=== PATIENT | female | born 1980 | race Caucasian/White ===

== ENCOUNTER 2017-08-28 05:09 | Day surgery (SDC) | payer BC ==
[2017-08-25 10:00] LABS: HEMATOCRIT 38.6 % (36.0-48.0); LYMPHOCYTES 37.1 % (15-50); MCH 31.4 pg (26.0-34.0); MCHC 33.7 g/dL (31.0-37.0); MCV 93.2 fL (80.0-100.0); MEAN PLATELET VOLUME 10.2 fL (7.4-10.4); NEUTROPHILS 57.4 % (40-80); PLATELET COUNT 208 10x3/uL (130-400); RBC 4.14 10x6/uL (4.00-5.40); RDW 13.5 % (11.5-14.5); WBC 6.5 10x3/uL (4.8-10.8)
[2017-08-25 10:17] LABS: CALC OSMOLALITY 277 mosm/kg (275-300); CALCIUM 9.2 mg/dL (8.5-10.1); CARBON DIOXIDE 28.5 mmol/L (21.0-32.0); CHLORIDE - SERUM 103 mmol/L (98-107); CREATININE - SERUM 0.7 mg/dL (0.6-1.3); GLUCOSE 90 mg/dL (74-106); POTASSIUM - SERUM 4.4 mmol/L (3.5-5.1); SODIUM 139 mmol/L (136-145); UREA NITROGEN 12 mg/dL (7-18); eGFR NON AFRICAN AMERICAN > 90 mL/min (90-120)
[~2017-08-28] VITALS: Ht 160 cm; Wt 96.4 kg
[2017-08-28] VITALS (11 sets, daily range): BP systolic 97–126; BP diastolic 60–73; Ht 160 cm; Wt 96.4 kg
[~2017-08-28 05:09] MED LIST: METFORMIN HCL500 M1 PO
[2017-08-28] MEDS ORDERED: ADDERALL 20 MG20 M1 PO (05:48)
[2017-08-28 06:21] LABS: HCG URINE NEGATIVE (NEGATIVE)
--- NOTE | 2017-08-28 12:00 | NUR ---
RECEIVED PT FROM VIA BED TO ROOM 1217. BED LOCKED AND PLACED IN LOW POSITION. VSS. PT AAO X 4. HRRR WITHOUT AUDIBLE MURMUR. BBS CLEAR. BS ABSENT IN UPPER QUADS, HYPOACTIVE IN LOWER QUADS. 3 LAP INCISIONS WITH DERMABOND WITHOUT REDNESS, SWELLING OR DRAINAGE NOTED. NEG HOMANS' SIGN. PPP. NO EDEMA NOTED TO BLE. SCDS ON BLE. PUMP ON. BANKS TO GRAVITY DRAINING CLOUDY, YELLOW URINE. PIV OF NS INFUSING AT 150 ML/HR TO RIGHT AC. SITE CLEAR. PT STATES PAIN OF "9" ON 0-10 PAIN SCALE. AT BEDSIDE. SR UP X 2. CALL LIGHT IN REACH.
--- NOTE | 2017-08-28 12:05 | NUR ---
TORADOL 30 MG GIVEN SIVP OVER 2 MINUTES. PT INSTRUCTED ON MED. VERBALIZES UNDERSTANDING.
--- NOTE | 2017-08-28 12:10 | NUR ---
ICE CHIPS PROVIDED TO PT.
--- NOTE | 2017-08-28 12:24 | NUR ---
ICE PACK TO INCISION.
--- NOTE | 2017-08-28 12:44 | NUR ---
PT CONTINUES TO C/O PAIN OF "10" ON 0-10 PAIN SCALE. DILAUDID 2 MG GIVEN SIVP OVER 2 MINUTES. PT INSTRUCTED ON MED. VERBALIZES UNDERSTANDING.
--- NOTE | 2017-08-28 13:15 | NUR ---
PT LYING SUPINE IN BED. EYES CLOSED. RESP NON-LABORED. WAKES BRIEFLY, STATES PAIN MUCH BETTER. NO C/O VOICED.
--- NOTE | 2017-08-28 14:07 | NUR ---
PT WAKES UPON ENTERING ROOM. STATES PAIN MUCH BETTER. UMB INCISION WITHOUT DRAINAGE OR SWELLING NOTED. SLIGHT REDNESS NOTED TO INCISION. ICE PACK CONTINUES TO INCISION. PT PROVIDED [place] IN [place].
--- NOTE | 2017-08-28 15:13 | NUR ---
DR PATTERSON NOTIFIED OF PT C/O NAUSEA AND DESIRE TO STAY OVERNIGHT RATHER THAN DC THIS EVENING. NEW ORDER RECEIVED.
--- NOTE | 2017-08-28 15:54 | NUR ---
REGLAN 10 MG GIVEN SIVP OVER 2 MINUTES. PT STATES NAUSEA HAS SUBSIDED SOME. PT INSTRUCTED ON MED. VERBALIZES UNDERSTANDING.
--- NOTE | 2017-08-28 16:48 | NUR ---
PT C/O INCISIONAL PAIN OF "7" ON 0-10 PAIN SCALE. DILAUDID 2 MG GIVEN SIVP OVER 2 MINUTES. PT INSTRUCTED ON MED. VERBALIZES UNDERSTANDING.
--- NOTE | 2017-08-28 17:36 | NUR ---
THIS RN TO BEDSIDE FOR ADMIT AND HISTORY ASSESSMENT. PT CURRENTLY IN HIGH FOWLERS WITH SPOUSE AT BEDSIDE ASSISTING PT WITH EATING A REG DIET. PT IS DROWZY W/PERIODS OF ALERTNESS WHEN ADDRESSED OR WITH VERBAL STIMULUS. ASSESSMENT COMPLETED WITH SOME ASSISTANCE FROM SPOUSE. PT CURRENTLY RATES PAIN 5/10 DESCRIBING IT SORENESS. PATIENT NEEDS ASSESSED. PT REQUESTING MORE TEA TO DRINK. LARGE CUP OF TEA FROM [employer] PROVIDED ALONG WITH A LARGE CUP OF ICE WATER. SPOUSE AND FAMILY X 1 REMAIN AT BEDSIDE. BED LOW, SIDE RAILS UP X 2. CALL LIGHT AT PT'S SIDE.
[2017-08-28] MEDS ORDERED: IBUPROFEN800 MG PO (17:50)
--- NOTE | 2017-08-28 18:15 | NUR ---
PIV CONVERTED TO SALINE LOCK. FLUSHES EASILY WITH 10 ML NS. SITE RETAPED AND SECURED. BANKS DC'D WITH 200 ML OF DARK, TOMASA COLORED URINE NOTED IN BAG. PT OOB AND AMB TO BR TO VOID. PT UNABLE TO VOID AT THIS TIME. PERICARE DONE PER PT. PANTIES AND PAD ON. PT AMBULATES BACK TO BED. TAVO ACTIVITY WELL.
--- NOTE | 2017-08-28 18:34 | NUR ---
PT TAX LAWYER LIGHT. SL SITE LEAKING. ATTEMPT TO RETAPE AND SECURE AND IV CATHELON DC'D. PRESSURE BANDAGE TO SITE. PT TAVO WELL.
--- NOTE | 2017-08-28 18:38 | NUR ---
DR MAE NOTIFIED OF PIV DISCONTINUED AND ORDERS FOR TORADOL. NEW ORDER RECEIVED.
--- NOTE | 2017-08-28 18:48 | NUR ---
TORADOL 30 MG GIVEN IM TO RIGHT HIP. PT INSTRUCTED ON MED. VERBALIZES UNDERSTANDING.
--- NOTE | 2017-08-28 19:20 | NUR ---
ASSESSMENT PER FLOW SHEET, 2 LAP AND 1 UMB INC WITH DERMABOND CDI WITH NO DRAINAGE NOTED, FRESH ICE PACK TO ABD, NO VAG BLEEDING NOTED, PT DENIES FLATUS OR NAUSEA AT THIS TIME, PT INST ON DUE TO VOID, PT VERBALIZES UNDERSTANDING, PT INST ON AND DEMONSTRATED INCENTIVE SPIROMETER WITH GOOD EFFORT, PT RATES INC PAIN 5/10 AT THIS TIME, PT DENIES NEEDS AT THIS TIME, FAMILY AT BEDSIDE
--- NOTE | 2017-08-28 19:45 | NUR ---
PT OFF UNIT VIA WC WITH FAMILY AT THIS TIME
--- NOTE | 2017-08-28 20:20 | NUR ---
PT BACK IN ROOM, VS OBTAINED, PT C/O SLIGHT NAUSEA AT THIS TIME, FRESH ICE CHIPS SERVED, DENIES FURTHER NEEDS
--- NOTE | 2017-08-28 20:48 | NUR ---
PT C/O INC PAIN, DENIES NAUSEA, GAVE PT OPTION OF RESTARTING IV OR TAKING PAIN MED PO, PT REQUESTED PO, ADM PERCOCET PER MD ORDERS, SEE EMAR, PT INST TO EAT A SNACK WITH PAIN MED, PT REPORTS EATING CHEEZ ITS, PT REQUESTED AND SERVED TEA, PT DENIES FURTHER NEEDS AT THIS TIME, FAMILY AT BEDSIDE
--- NOTE | 2017-08-28 21:25 | NUR ---
PT RESTING WITH EYES CLOSED, RESP QUIET, NO DISTRESS NOTED, LEFT UNDISTURBED AT THIS TIME, BEDDING PROVIDED TO SPOUSE
--- NOTE | 2017-08-28 22:33 | NUR ---
PT RESTING WITH EYES CLOSED, RESP QUIET, NO DISTRESS NOTED, LEFT UNDISTURBED AT THIS TIME, SPOUSE ASLEEP IN RECLINER
--- NOTE | 2017-08-28 23:05 | NUR ---
SPOUSE AT UNDER WATER ASSISTANT, INQUIRES ABOUT PAIN MED FOR PT, THIS RN TO ROOM, PT INFORMED WHEN PAIN MED IS DUE, PT VERBALIZES UNDERSTANDING, INFORMED PT THAT I WILL BE IN AROUND 12:30 AM TO ADM WHEN DUE AND OBTAIN VS AT THAT TIME, PT VERBALIZES UNDERSTANDING, PT REPORTS VOIDING, EMPTIED 600 MLS OF CLEAR YELLOW URINE FROM [place], SCD'S PLACED ON AND WORKING PROPERLY, PT DENIES FURTHER NEEDS AT THIS TIME, SPOUSE AT BEDSIDE
[2017-08-29 00:39] VITALS: BP 110/64
--- NOTE | 2017-08-29 00:39 | NUR ---
PT RESTING WITH EYES CLOSED, AROUSES TO SOFT VERBAL STIMULATION, VS OBTAINED, PT DEMONSTRATED INCENTIVE SPIROMETER WITH GOOD EFFORT, ADM PAIN MED PER MD ORDERS, SEE EMAR, PT REQUESTS TO AMB FOR A FEW MINUTES, SCD'S REMOVED, PT UP, GAIT STEADY, THIS RN WALKS WITH PT AROUND UNIT, PT BACK TO ROOM, VOIDED WITH NO DIFFICULTY, WENT TO EMPTY [place], PT REPORTS REMOVING IT FROM [employer], STATES "I DIDN'T REALIZE YOU NEEDED ME TO PEE IN IT AGAIN", PT REPORTS VOIDING LARGE AMOUNT "LIKE LAST TIME", PT TO SINK, WASHES HANDS, BACK TO BED, SCD'S PLACED BACK ON AND WORKING PROPERLY, FRESH ICE PACK TO ABD, PT DENIES FURTHER NEEDS, SPOUSE ASLEEP IN RECLINER
--- NOTE | 2017-08-29 02:03 | NUR ---
PT RESTING WITH EYES CLOSED, RESP QUIET, NO DISTRESS NOTED, LEFT UNDISTURBED AT THIS TIME, SCD'S CONTINUE ON AND WORKING PROPERLY, SPOUSE ASLEEP IN RECLINER
[2017-08-29 04:24] VITALS: BP 125/67
--- NOTE | 2017-08-29 04:24 | NUR ---
SPOUSE AT HOG HANDLER, REQUESTS H20 FOR PT, THIS RN TO ROOM, PT SITTING ON SIDE OF BED, VS OBTAINED, ADM PERCOCET PO PER MD ORDERS, SEE EMAR, WITH FRESH H20, PT DEMONSTRATED I.S. WITH GOOD EFFORT, PT DENIES FURTHER NEEDS, PT REQUESTS SCD'S OFF AT THIS TIME
--- NOTE | 2017-08-29 04:40 | NUR ---
PT OFF UNIT VIA WC WITH SPOUSE
--- NOTE | 2017-08-29 05:05 | NUR ---
PT BACK IN ROOM, SITTING UP IN WC, REPORTS THAT SITTING UP MAKES HER FEEL BETTER, PT DENIES NEEDS AT THIS TIME, SPOUSE AT SIDE
--- NOTE | 2017-08-29 06:16 | NUR ---
PT RESTING WITH EYES CLOSED, RESP QUIET, NO DISTRESS NOTED, LEFT UNDISTURBED AT THIS TIME, SPOUSE ASLEEP IN RECLINER
--- NOTE | 2017-08-29 07:00 | NUR ---
SHIFT REPORT TO JUMANA MCCLELLAND RN
[2017-08-29 07:20] VITALS: BP 124/73
--- NOTE | 2017-08-29 07:30 | NUR ---
PT IS RECEIVED THIS AM SITTING UP IN BED. SHE STATES THAT HER PAIN IS A 6. SHE LAST HAD HER PAIN MED AT 0430. GEN- AWAKE AND ALERT. LUNGS- CLEAR. HEART- RRR. ABD- SOFT WITH TENDERNESS. BS+. TWO LOWER LAP INCISIONS WITH DERMABOND THAT ARE CLEAN AND DRY. UMBILICAL INCISION ALSO CLEAN AND DRY WITH DERMABOND. SMALL VAGINAL BLEEDING. SCD'S ARE OFF AT THIS TIME SINCE PT HAS BEEN AMBULATORY IN HALLWAYS AND ROOM. BED IS LOW. SIDE RAILS UP X 2 AND CALL LIGHT IN REACH. AT BEDSIDE.
--- NOTE | 2017-08-29 08:00 | NUR ---
DR PATTERSON IS HERE TO SEE PT. NEW ORDERS TO BE REVIEWED.
--- NOTE | 2017-08-29 08:49 | NUR ---
PT JUST RETURNED FROM AMBULATING IN HALLWAY WITH HER . SHE WALKED TO THE [place]FET[place]IA AND BACK. SHE REQUESTED PAIN MED. PAIN MED GIVEN. J PT IS BEING DISCHARGED. SHE WOULD LIKE TO BE DISCHARGED ABOUT 1300.
[2017-08-29] MEDS ORDERED: PERCOCET 7.5/321 TAB (10:30)
[2017-08-29] MEDS ORDERED: IBUPROFEN600 MG PO (10:30)
--- NOTE | 2017-08-29 11:00 | NUR ---
PT WAS UP AND TAKING SHOWER. GETTING DRESSED TO BE DISCHARGED. HAS ALREADY BEEN AND PICKED UP HER PRESCRIPTIONS FOR HOME. THEY LIVE IN [place] AND WANTED HER TO HAVE PAIN MED AGAIN BEFORE SHE GETS IN HER CAR TO GO.
--- NOTE | 2017-08-30 22:28 | DS ---
PATIENT:CAROLINE SR :84 MEDICAL RECORD: [id number] DISCHARGE SUMMARY ADMISSION DATE: 08/28/17 DISCHARGE DATE: 08/29/17 DATE OF ADMISSION: 08/28/2017. DATE OF DISCHARGE: 08/29/2017. ADMISSION DIAGNOSIS: Cervical dysplasia. DISCHARGE DIAGNOSIS: Cervical dysplasia. PROCEDURE: 1. Laparoscopically-assisted vaginal hysterectomy with bilateral salpingectomy. 2. Cystoscopy. ATTENDING: Dr. Patterson. HISTORY OF PRESENT ILLNESS: See the H&P in the chart. SUMMARY OF HOSPITALIZATION: The patient was admitted to the hospital and underwent procedure without incident. At the time of discharge, she is voiding without difficulty, and tolerating a regular diet. DISCHARGE MEDICATIONS: Will include Percocet and Motrin. Postoperative precautions have been reviewed with the patient. She will follow up in 2 weeks at [facility]. TRANSINT:[id number] Voice Confirmation ID: [id number] DOCUMENT ID: [id number] ANNIE PATTERSON MD at 2228 CC: [id number] DICTATION DATE: 08/29/17 08 WEIGHT ENGINEER: 08/29/17 1347 [facility] 08/29/17 [id number] [place] [address]
--- NOTE | 2017-09-12 08:12 | OP ---
PATIENT NAME: CAROLINE SR MEDICAL RECORD: [id number] :84 LOCATION:D[facility] ADMISSION DATE: SURGEON: ROE PATTERSON MD DATE OF OPERATION: 08/28/2017 DATE OF PROCEDURE: 08/28/2017 PREOPERATIVE DIAGNOSIS: Cervical dysplasia. POSTOPERATIVE DIAGNOSIS: Cervical dysplasia. PROCEDURE: Laparoscopically assisted vaginal hysterectomy with bilateral salpingectomy. SURGEON: Roe Patterson MD IT CORPORATE RECRUITER: GONZALES Decker. ANESTHESIOLOGIST: Dr. Delatorre. ANESTHETICS: General anesthetic with endotracheal intubation. PROCEDURE FINDINGS: Enlarged boggy uterus. Ovaries are unremarkable. Cervix is unremarkable. ESTIMATED BLOOD LOSS: 450 cc. FLUIDS: 1700 cc lactated Ringer's. URINE OUTPUT: 450 cc of clear urine. COMPLICATIONS: None. DRAINS: Bustamante to gravity. INDICATIONS: The patient is a 37-year-old female with history of cervical dysplasia. The patient desires definitive therapy. The patient has no future fertility desires. Risks and benefits as well as limitations described. DESCRIPTION OF PROCEDURE: After informed consent was assured, the patient was taken to the operating room where anesthetic was obtained without difficulty. The patient was now prepped and draped in the usual sterile fashion. A trocar was then inserted in the infraumbilical incision site, pneumoperitoneum developed and then she was placed in Trendelenburg position. Accessory ports were placed in the right and left lower quadrants. The left adnexa was addressed. The left tube was elevated and using Harmonic scalpel, the tissues inferior to the left tube were serially compressed, coagulated and . The dissection was carried over the uteroovarian ligament and round ligaments. The anterior leaf of the broad ligament was incised and the bladder flap developed. This was repeated on the contralateral side. Again, using the Harmonic scalpel, the tube was removed from its attachments. Dissection was carried over the uteroovarian and round ligaments. Anterior leaf of the broad ligament was dissected and the bladder flap developed. The attention was now directed to the vagina. The legs were positioned and the patient was leveled. Weighted speculum was introduced and thyroid tenaculums were used to grasp the OPERATIVE REPORT [id number] CAROLINE SR cervix. Using an Allis clamp, the mucosa posterior to the cervix was grasped and using Ospina scissors the colpotomy was performed. The bladder peritoneum was tacked to the mucosa with a suture. Using Wagner clamp, the opening was extended laterally and the uterosacral ligaments isolated. This clamp has developed sharply and a Wagner stitch applied. The stitches were held for use later in the procedure. The attention was now directed anteriorly. Using Bovie cautery, the mucosa overlying the cervix was mobilized. Using the [place] retractor, the peritoneum anteriorly was identified and Metzenbaum scissors were used to enter the anterior pouch sharply. Jenelle retractor was not placed in this opening. The remaining portion of the cardinal ligaments serially clamped, cut and tied. Uterus was morcellated for removal. Cuff was now closed in a horizontal fashion. Using a stick tie, the uterosacral ligaments were retracted medially and the stitches placed both behind and medial to this pedicle. Interrupted stitches were used to reapproximate the cuff. Sponge, lap and needle counts were correct times 2 as the pneumoperitoneum was now developed and inspection revealed adequate hemostasis. The cul-de-sac was irrigated and irrigant removed. Accessory trocars were removed under direct visualization and the primary trocars removed after release of the pneumoperitoneum. Sponge, lap and needle counts correct times 2. TRANSINT:[id number] Voice Confirmation ID: [id number] DOCUMENT ID: [id number] ROE PATTERSON MD at 0812 CC: [id number] DICTATION DATE: 09/11/17 0706 [employer] MEDICAL SERGEANT: 09/11/17 0754 [facility] 08/29/17 [address] [place] [address]
== END 2017-08-29 11:00 | disposition home or self-care (01) ==
LOC: D.OPS 05:09 → D.PAN 07:30 → D.WS 11:26 → D.OPS 08-29 11:00
PROVIDERS: Anesthesiology; Obstetrics & Gynecology
DX: N87.9 Dysplasia of cervix uteri, unspecified (principal)

== ENCOUNTER → 2017-09-01 10:12 | Emergency (ER) | payer BC ==
[2017-08-28 17:40] VITALS: BMI 37.6
[~2017-09-01 10:12] MED LIST changes: +ADDERALL 20 MG20 M1 PO; +IBUPROFEN600 MG PO; +IBUPROFEN800 MG PO; +PERCOCET 7.5/321 TAB
[2017-09-01 10:56] LABS: BASOPHILS 0.2 % (0-2); EOSINOPHILS 2.6 % (0-7); HEMATOCRIT 32.8 % (36.0-48.0); HEMOGLOBIN 10.9 g/dL (12-16); IMMATURE GRANULOCYTES 0.2 % (0-5); LYMPHOCYTES 19.8 % (15-50); MCH 31.6 pg (26.0-34.0); MCHC 33.2 g/dL (31.0-37.0); MCV 95.1 fL (80.0-100.0); NEUTROPHILS 67.2 % (40-80); PLATELET COUNT 225 10x3/uL (130-400); RBC 3.45 10x6/uL (4.00-5.40); RDW 13.9 % (11.5-14.5); WBC 6.6 10x3/uL (4.8-10.8)
[2017-09-01 10:57] LABS: APPEARANCE SLT CLOUDY (CLEAR); BACTERIA FEW /hpf (NONE SEEN); BILIRUBIN NEGATIVE (NEGATIVE); COLOR DK YELLOW (YELLOW); EPITHELIAL CELLS 0-5 /hpf (0-5); GLUCOSE NEGATIVE (NEGATIVE); KETONE NEGATIVE (NEGATIVE); MUCUS <1+ /lpf (NONE SEEN); NITRITE NEGATIVE (NEGATIVE); PROTEIN NEGATIVE (NEGATIVE); RED CELLS - URINE >50 /hpf (0-5); SPECIFIC GRAVITY 1.005 (1.005-1.020); WHITE CELLS - URINE 0-5 /hpf (0-5)
[2017-09-01 11:08] LABS: ALBUMIN 3.2 g/dL (3.4-5.0); ALKALINE PHOSPHATASE 85 U/L (46-116); ALT (SGPT) 18 U/L (10-68); BILIRUBIN - TOTAL 0.57 mg/dL (0.2-1.3); CALC OSMOLALITY 273 mosm/kg (275-300); CALCIUM 8.6 mg/dL (8.5-10.1); CHLORIDE - SERUM 103 mmol/L (98-107); CREATININE - SERUM 0.7 mg/dL (0.6-1.3); GLUCOSE 96 mg/dL (74-106); POTASSIUM - SERUM 4.3 mmol/L (3.5-5.1); SODIUM 138 mmol/L (136-145); UREA NITROGEN 6 mg/dL (7-18); eGFR NON AFRICAN AMERICAN > 90 mL/min (90-120)
[2017-09-01 11:14] LABS: APTT 27.4 SECONDS (22.8-39.4); INR 0.97 (0.85-1.17); PROTIME 12.5 SECONDS (11.6-15.0)
== END | disposition home or self-care (01) ==
LOC: D.ER 10:12
PROVIDERS: Family Medicine; Nurse Practitioner Family
DX: N99.820 Postprocedural hemorrhage of a genitourinary system organ or structure following a genitourinary system procedure (principal); E11.9 Type 2 diabetes mellitus without complications; F98.8 Other specified behavioral and emotional disorders with onset usually occurring in childhood and adolescence; F17.200 Nicotine dependence, unspecified, uncomplicated

== ENCOUNTER 2019-09-19 17:40 | Emergency (ER) | payer OTHER, BC ==
[~2019-09-19] VITALS: Ht 160 cm; Wt 96.4 kg
[2019-09-19 18:02] VITALS: Ht 160 cm; Wt 96.4 kg
[2019-09-19] MEDS ORDERED: SYNTHROID50 MCG PO (18:04)
[2019-09-19] MEDS ORDERED: VOLTAREN75 MG PO (20:46)
[2019-09-19] MEDS ORDERED: BACLOFEN20 M1 PO (20:46)
[2019-09-19 21:26] VITALS: BP 132/88
== END 2019-09-19 22:30 | disposition home or self-care (01) ==
LOC: D.ER 17:40
DX: M62.838 Other muscle spasm (principal); S16.1XXA Strain of muscle, fascia and tendon at neck level, initial encounter; V89.2XXA Person injured in unspecified motor-vehicle accident, traffic, initial encounter; Y93.9 Activity, unspecified; Y92.9 Unspecified place or not applicable; E05.90 Thyrotoxicosis, unspecified without thyrotoxic crisis or storm; E11.9 Type 2 diabetes mellitus without complications; Z79.84 Long term (current) use of oral hypoglycemic drugs